=== PATIENT | female | born 1980 | race American Indian/Alaskan Native ===

== ENCOUNTER 2020-11-01 11:56 | Emergency (ER) | payer BC ==
[2020-11-01 12:47] VITALS: BP 179/80
--- NOTE | 2020-11-01 13:12 | Event Note ---
ED Screening Note Date of service: 11/01/20 Time: 13:12 ED Screening Note: The patient was evaluated in the emergency department for symptoms described in the history of present illness. He/she was evaluated in the context of the global COVID-19 pandemic, which necessitated consideration that the patient might be at risk for infection with the virus that causes COVID-19. Institutional protocols and algorithms that pertain to the evaluation of patients at risk for COVID-19 are in a state of rapid change based on information released by regulatory bodies including the CDC and federal and state organizations. These policies and algorithms were followed during the patient's care in the emergency department. Please note that these policies, procedures and recommendations changed on a rapid basis. 40-year-old morbid obese -[place] female presents to the emergency room for 1 day history of right lower quadrant discomfort. Patient denies any fever no chills states that she has had clear vaginal discharge that has cleared up. She has no concerns for STD. She is taking nothing for pain. States that she had taken something for gas and has drank cranberry juice. She denies any urinary urgency or frequency or dysuria. She reports her last menstrual period was September 29, 2020. She is currently on no control but has her tubes tied. This initial assessment/diagnostic orders/clinical plan/treatment(s) is/are subject to change based on patients health status, clinical progression and re- assessment by fellow clinical providers in the ED. Further treatment and workup at subsequent clinical providers discretion. Patient/guardian urged not to elope from the ED as their condition may be serious if not clinically assessed and managed. Initial orders include: Urinalysis urine . Patient looks very healthy does not look in acute distress does not have psoas no referred pain no guarding. Mild tenderness to deep palpation. Vital signs are stable afebrile.
[2020-11-01 13:56] LABS: Bilirubin,Urine NEG (Negative); Blood,Urine NEG (Negative); Color,Urine Straw (Yellow); Protein,Urine <15 mg/dL mg/dL (Negative); Urobilinogen,Urine < 2.0 mg/dL (<2.0)
[2020-11-01 14:06] LABS: HCG Qualitative,Urine Negative (Negative)
[2020-11-01] MEDS ORDERED: IBUPROFEN 800 MG TAB PO ONE (14:12)
--- NOTE | 2020-11-01 14:18 | Emergency Department Report ---
ED Abdominal Pain HPI - General Chief Complaint: Abdominal Pain Stated Complaint: LOWER ABDOM PAIN Time Seen by Provider: 11/01/20 14:12 Source: patient Mode of arrival: Ambulatory Limitations: No Limitations - History of Present Illness Initial Comments: 40-year-old female with a past medical history of previous tubal ligation presents to the hospital complaining of right lower quadrant pain x2 days. Patient describes it as a constant pulling sensation worse with movement and palpation. Pain is rated 5/10 in intensity. Patient had clear vaginal discharge last week while on antibiotics for her tooth but this has since improved. She denies vaginal itching, vaginal burning, or concern for STD. She is currently with one sexual partner. She also denies associated symptoms include nausea, vomiting, fever, or dysuria. She complains of "mild urinary frequency" secondary to drinking tea. Patient is noted to have elevated blood pressure states she has whitecoat syndrome and her blood pressure was normal when she checked it prior to arrival. She does not currently have a CONTROL OFFICER and has not been evaluated by TECHNICAL MANAGER in the past 2 to 3 years - Related Data Previous Rx's Medication Instructions Recorded Last Taken Type Ibuprofen [Motrin] 800 mg PO Q8HR PRN #30 tablet 11/01/20 Unknown Rx Allergies Allergy/AdvReac Type Severity Reaction Status Date / Time No Known Allergies Allergy Verified 11/01/20 12:44 ED Review of Systems ROS: Stated complaint: LOWER ABDOM PAIN Other details as noted in HPI Comment: All other systems reviewed and negative ED Past Medical Hx - Past Medical History Previous Medical History?: No - Surgical History Past Surgical History?: No - Medications Home Medications: Home Medications Medication Instructions Recorded Confirmed Last Taken Type Ibuprofen [Motrin] 800 mg PO Q8HR PRN #30 tablet 11/01/20 Unknown Rx ED Physical Exam - General Limitations: No Limitations - Other Other exam information: General: No acute distress Head: Atraumatic Eyes: normal appearance ENT: Moist mucous membranes Neck: Normal appearance, no midline tenderness Chest: Clear to auscultation bilaterally CV: Regular rate and rhythm Abdomen: Soft, normal bowel sounds, mild right lower quadrant tenderness, nondistended, no rebound or guarding, no tenderness with heel tap or Back: Normal inspection Extremity: Normal inspection, full range of motion Neuro: Alert O x 3, no facial asymmetry, speech clear, no gross motor sensory deficit Psych: Appropriate behavior Skin: No rash ED Course Vital Signs 11/01/20 12:45 Temperature 98.5 F Pulse Rate 94 H Respiratory 16 Rate Blood Pressure 179/80 [Left] O2 Sat by Pulse 100 Oximetry ED Medical Decision Making - Medical Decision Making 40-year-old female with mild right lower quad tenderness without associated symptoms. Low suspicion for acute appendicitis or acute infectious etiology given lack of fever. Patient with has UA negative for infection or . Spoke to patient extensively about importance of follow-up and to return if symptoms worsen as indicated by discharge instructions. Motrin provided for pain Critical Care Time: No Critical care attestation.: If time is entered above; I have spent that time in minutes in the direct care of this critically ill patient, excluding procedure time. ED Disposition Clinical Impression: Right lower quadrant abdominal pain Disposition: HOME / SELF CARE / HOMELESS Is pt being admited?: No Does the pt Need Aspirin: No Condition: Stable Instructions: Abdominal Pain (ED), Abdominal Pain, Adult Additional Instructions: Take the medication as prescribed. Follow-up with your doctor or doctor/clinic provided. Return if symptoms worsen as indicated by your discharge instructions. Prescriptions: Ibuprofen [Motrin] 800 mg PO Q8HR PRN #30 tablet PRN Reason: Pain , Severe (7-10) Referrals: RUTH LESTER MD [Staff Physician] - 3-5 Days ANSLEY VALDEZ MD [Staff Physician] - 3-5 Days Time of Disposition: 14:33
== END 2020-11-01 14:59 | disposition home or self-care (01) ==
LOC: ED 11:56
DX: R10.31 Right lower quadrant pain (principal)
CPT/HCPCS: 81001; 81025; 99283